=== PATIENT | female | born 1950 ===

== ENCOUNTER 2021-03-22 17:09 | Inpatient (IN) | payer OTHER ==
[~2021-03-22] VITALS: Ht 160 cm; Wt 65.7 kg
[2021-03-22 18:57] LABS: Basophils # (auto) 0 10 ^3/uL (0-0.2); Basophils % (auto) 0.6 % (0.0-2.0); Eosinophils # (auto) 0 10 ^3/uL (0-0.8); Eosinophils % (auto) 0.7 % (0.0-7.0); Hematocrit 40.5 % (36.0-46.0); Lymphocytes # (auto) 1.6 10 ^3/uL (0.4-5.4); Mean Corpuscular Hemoglobin 29.5 pg (28.0-32.0); Mean Corpuscular Hgb Conc. 32.1 g/dL (32.0-36.0); Monocytes # (auto) 0.6 10 ^3/uL (0-1.3); Monocytes % (auto) 11.1 % (0.0-12.0); Neutrophils # (auto) 3.2 10 ^3/uL (1.6-8.6); Neutrophils % (auto) 58.6 % (37.0-80.0); Nucleated Red Blood Cells % 0.1 %; Red Cell Distribution Width 15.8 % (11.8-14.3); White Blood Cell 5.4 10^3/uL (4.4-10.8)
[2021-03-22 19:09] LABS: Albumin 3.6 g/dL (3.4-5.0); Calcium 8.7 mg/dL (8.5-10.1); Potassium 3.2 mmol/L (3.5-5.1)
[2021-03-22 19:15] LABS: BUN/Creatinine Ratio 17.1; Bilirubin, Total 0.5 mg/dL (0.2-1.0); Total Protein 6.9 g/dL (6.4-8.2)
[2021-03-22] MEDS ORDERED: ONDANSETRON HCL 4 MG/2 ML VIAL IV PRN (22:15)
[2021-03-22] MEDS ORDERED: POTASSIUM CHL 20 Meq TABLET PO ONE (22:15)
[2021-03-22] MEDS ORDERED: ACETAMINOPHEN 325 MG TAB PO PRN (22:15)
[2021-03-23] MEDS: GABAPENTIN 400 MG CAP PO SCH ×3 (06:26→21:48)
[2021-03-23 07:00] LABS: Basophils # (auto) 0 10 ^3/uL (0-0.2); Basophils % (auto) 0.7 % (0.0-2.0); Eosinophils # (auto) 0.1 10 ^3/uL (0-0.8); Eosinophils % (auto) 0.8 % (0.0-7.0); Hematocrit 37.6 % (36.0-46.0); Hemoglobin 12.2 g/dL (12.2-16.2); Lymphocytes # (auto) 2.5 10 ^3/uL (0.4-5.4); Lymphocytes % (auto) 39.5 % (10.0-50.0); Mean Corpuscular Hemoglobin 29.9 pg (28.0-32.0); Mean Corpuscular Hgb Conc. 32.6 g/dL (32.0-36.0); Mean Corpuscular Volume 91.9 fL (80.0-100.0); Monocytes # (auto) 0.8 10 ^3/uL (0-1.3); Monocytes % (auto) 12.7 % (0.0-12.0); Neutrophils % (auto) 46.3 % (37.0-80.0); Nucleated Red Blood Cells % 0.1 %; Red Blood Cells 4.09 10^6/uL (4.0-5.20); Red Cell Distribution Width 15.6 % (11.8-14.3); White Blood Cell 6.4 10^3/uL (4.4-10.8)
[2021-03-23 07:19] LABS: Potassium 3.8 mmol/L (3.5-5.1)
[2021-03-23 07:22] LABS: BUN/Creatinine Ratio 18.2; Calcium 8.6 mg/dL (8.5-10.1)
[2021-03-23] MEDS ORDERED: LORazepam 2MG/ML-1ML VIAL IV PRN (09:30)
[2021-03-23 09:47] LABS: Cholesterol 182 mg/dL (< 200)
[2021-03-23 09:50] LABS: HDL Cholesterol 118 mg/dL (40-59); LDL Cholesterol 55 mg/dL (< 100); Triglycerides 102 mg/dL (< 150)
[2021-03-23] MEDS ORDERED: PANTOPRAZOLE 40 MG TAB PO SCH (10:00)
[2021-03-23] MEDS: ASCORBIC ACID 500 MG TAB PO SCH ×2 (10:03→21:48)
[2021-03-23] MEDS: ZINC SULFATE 220mg CAP or TAB PO SCH (10:03)
[2021-03-23] MEDS: ALLOPURINOL 100 MG TAB PO SCH (10:04)
[2021-03-23] MEDS: LEVOTHYROXINE SODIUM 100 MCG TAB PO SCH (10:04)
[2021-03-23] MEDS: HCTZ 25 MG TAB PO SCH (10:05)
[2021-03-23] MEDS: ENOXAPARIN SOD 40 MG/0.4 ML SYRINGE SC SCH (10:06)
[2021-03-23] MEDS: ASPirin-EC 81 mg tab PO SCH (10:06)
[2021-03-23] MEDS ORDERED: MELO1TAB56 PO (12:23)
[2021-03-23] MEDS ORDERED: GABA100C9 PO (12:23)
[2021-03-23] MEDS ORDERED: HYDR25TA4 PO (12:23)
[2021-03-23] MEDS ORDERED: MONT-8 PO (12:23)
[2021-03-23] MEDS ORDERED: ALL100T PO (12:23)
[2021-03-23] MEDS ORDERED: TRAM-711 PO (12:23)
[2021-03-23] MEDS ORDERED: KETO2CRE4 TOP (12:23)
[2021-03-23] MEDS ORDERED: HYDR-4833 PO (12:23)
[2021-03-23] MEDS ORDERED: LEV100T PO (12:23)
[2021-03-23] MEDS ORDERED: CETI-83 OR (12:23)
[2021-03-23] MEDS ORDERED: CHOL20007 PO (12:23)
[2021-03-23] MEDS ORDERED: FOLITAB22 PO (12:23)
[2021-03-23] MEDS ORDERED: ATOR20TA50 PO (12:23)
[2021-03-23] MEDS ORDERED: BENZ100C97 PO (12:23)
[2021-03-23] MEDS ORDERED: METH2.5T PO (12:23)
[2021-03-23] MEDS ORDERED: ASPI-543 PO (14:22)
[2021-03-23] MEDS ORDERED: traMADol HCL 50 MG TAB PO PRN (18:30)
[2021-03-23] MEDS ORDERED: ATORVASTATIN 20 MG TAB PO SCH (22:00)
[2021-03-23 22:05] VITALS: BP 140/98
[2021-03-24 05:15] VITALS: BP 116/71
[2021-03-24] MEDS: LEVOTHYROXINE SODIUM 100 MCG TAB PO SCH (05:48)
[2021-03-24] MEDS: GABAPENTIN 400 MG CAP PO SCH ×2 (05:49→13:55)
[2021-03-24 09:00] VITALS: BP 114/75
[2021-03-24] MEDS: ASCORBIC ACID 500 MG TAB PO SCH (09:30)
[2021-03-24] MEDS: HCTZ 25 MG TAB PO SCH (09:30)
[2021-03-24] MEDS: ZINC SULFATE 220mg CAP or TAB PO SCH (09:30)
[2021-03-24] MEDS: ALLOPURINOL 100 MG TAB PO SCH (09:30)
[2021-03-24] MEDS: ASPirin-EC 81 mg tab PO SCH (09:30)
[2021-03-24] MEDS: ENOXAPARIN SOD 40 MG/0.4 ML SYRINGE SC SCH (09:31)
[2021-03-24 15:15] VITALS: BP 135/71
== END 2021-03-24 16:10 | disposition home health service (06) | DRG 69 ==
LOC: ER 17:09 → EDBD 17:09 → OVERFLOW 22:08 → WEST WING 03-23 08:10 → TELE-WESTW 03-23 11:56
PROVIDERS: ADMIT Nurse Practitioner; ATTEND Hospitalist
DX: G45.9 Transient cerebral ischemic attack, unspecified (principal); N17.9 Acute kidney failure, unspecified; G81.94 Hemiplegia, unspecified affecting left nondominant side; N18.9 Chronic kidney disease, unspecified; E87.6 Hypokalemia; E03.9 Hypothyroidism, unspecified; E78.5 Hyperlipidemia, unspecified; F17.200 Nicotine dependence, unspecified, uncomplicated; G47.00 Insomnia, unspecified; Z20.822 Contact with and (suspected) exposure to COVID-19; I12.9 Hypertensive chronic kidney disease with stage 1 through stage 4 chronic kidney disease, or unspecified chronic kidney disease; M10.9 Gout, unspecified; Z79.82 Long term (current) use of aspirin; Z79.899 Other long term (current) drug therapy; Z82.49 Family history of ischemic heart disease and other diseases of the circulatory system; R47.81 Slurred speech; R29.700 NIHSS score 0; M32.9 Systemic lupus erythematosus, unspecified
CPT/HCPCS: 36415; 70450; 70551; 71045; 80048; 80053; 80061; 84484; 85025; 87426; 93005; 93306; 93886; 94660; 94762; 95819; G0378